=== PATIENT | male | born 1945 | race Caucasian/White ===

== ENCOUNTER 2016-06-26 09:59 | Day surgery (SDC) | payer MEDICARE, OTHER ==
--- NOTE | ~2016-06-26 | EGD ---
EGD REPORT [facility] [address] [address] NAME: ERASMO ALTAMIRANO : [birth year] STATUS : REG [facility]#: [id number] AGE: 71 ADM/REG DATE : 06/26/16 MR#: [id number] REPORT SERV DATE: 06/26/16 DICTATED BY: ERASMO LIZAMA DATE: 06/26/16 REPORT STATUS : Draft [facility]ANS[facility]: [facility] DATE: 06/26/16 Endoscopy Center Patient Name: Erasmo Altamirano Date of : 1945 Attending MD: ERASMO LIZAMA MD Procedure Date No Time: 06/26/2016 Procedure: Upper GI endoscopy Indications: Surveillance for malignancy due to personal history of Carrasco's esophagus Referring MD: Flavio GUTIERREZ MD Medicines: Monitored Anesthesia Care Complications: No immediate complications. Procedure: Pre-Anesthesia Assessment: - ASA Grade Assessment: III - A patient with severe systemic disease. After obtaining informed consent, the endoscope was passed under direct vision. Throughout the procedure, the patient's blood pressure, pulse, and oxygen saturations were monitored continuously. The GIF [id number] [id number] was introduced through the mouth, and advanced to the second part of duodenum. The upper GI endoscopy was accomplished without difficulty. The patient tolerated the procedure well. Findings: The Z-line was irregular and was found at the gastroesophageal junction. Biopsies were taken with a cold forceps for histology. A small hiatus hernia was present. The cardia and gastric fundus were normal on retroflexion. Localized mildly erythematous mucosa without active bleeding and with no stigmata of bleeding was found in the duodenal bulb. Biopsies were taken with a cold forceps for histology. The cardia and gastric fundus were normal on retroflexion. Impression: - Z-line irregular, at the gastroesophageal junction. Biopsied. - Hiatus hernia. - Erythematous duodenopathy. Biopsied. Recommendation: - Await pathology results. - Follow an antireflux regimen. - Repeat the upper endoscopy in 3 years for surveillance. Procedure Code(s): --- Professional --- 73261, Esophagogastroduodenoscopy, flexible, transoral; EGD REPORT [address] [place]. [address] NAME: ERASMO ALTAMIRANO : [birth year] STATUS : [place] [facility] [place]#: [id number] AGE: 71 ADM/REG DATE : 06/26/16 MR#: [id number] REPORT SERV DATE: 06/26/16 DICTATED BY: ERASMO LZIAMA DATE: 06/26/16 REPORT STATUS : Draft TRANSCRIBED BY: [employer] DATE: 06/26/16 with biopsy, single or multiple Diagnosis Code(s): --- Professional --- K22.8, Other specified diseases of esophagus K44.9, Diaphragmatic hernia without obstruction or gangrene K31.89, Other diseases of stomach and duodenum K22.70, Carrasco's esophagus without dysplasia CPT copyright 2013 [employer]. All rights reserved. The codes documented in this report are preliminary and upon pivot maker review may be revised to meet current compliance requirements. ERASMO LIZAMA MD 06/26/2016 12:45 PM This report has been signed electronically. Number of Addenda: 0 Note Initiated On: 06/26/2016 12:35 PM Scope Withdrawal Time 0 hours 0 minutes [address] [place], [place] [address] [address]
--- NOTE | ~2016-06-26 | EGD ---
EGD REPORT [facility] [address] [address] NAME: ERASMO ALTAMIRANO : 41 STATUS : REG [facility]#: [id number] AGE: 71 ADM/REG DATE : 06/26/16 MR#: [id number] REPORT SERV DATE: 06/26/16 DICTATED BY: ERASMO LIZAMA DATE: 06/26/16 REPORT STATUS : Draft [facility]ANSCRIBED [facility]: [facility] DATE: 06/26/16 Endoscopy Center Patient Name: Erasmo Altamirano Date of : 1945 Attending MD: ERASMO LIZAMA MD Procedure Date No Time: 06/26/2016 Procedure: Colonoscopy Indications: High risk colon cancer surveillance: Personal history of colonic polyps Referring MD: Flavio GUTIERREZ MD Medicines: Monitored Anesthesia Care Complications: No immediate complications. Procedure: Pre-Anesthesia Assessment: - ASA Grade Assessment: III - A patient with severe systemic disease. After I obtained informed consent, the scope was passed under direct vision. Throughout the procedure, the patient's blood pressure, pulse, and oxygen saturations were monitored continuously. The PCF [id number] was introduced through the anus and advanced to the cecum, identified by appendiceal orifice and ileocecal valve. The colonoscopy was performed without difficulty. The patient tolerated the procedure well. The quality of the bowel preparation was adequate. Findings: The digital rectal exam was normal. Pertinent negatives include no palpable rectal lesions. A sessile polyp was found in the ascending colon. The polyp was 5 mm in size. The polyp was removed with a cold biopsy forceps. Resection and retrieval were complete. A sessile polyp was found in the rectum. The polyp was 5 mm in size. The polyp was removed with a cold biopsy forceps. Resection and retrieval were complete. Diffuse melanosis was found in the entire colon. A few diverticula were found in the sigmoid colon. Hemorrhoids were found during retroflexion and were mild. Impression: - One 5 mm polyp in the ascending colon. Resected and retrieved. - One 5 mm polyp in the rectum. Resected and retrieved. - Melanosis in the colon. - Diverticulosis in the sigmoid colon. - Hemorrhoids. EGD REPORT [address] [address] NAME: EVELIAERASMO Raman : [birth year] STATUS : REG [facility] PAT#: [id number] AGE: 71 ADM/REG DATE : 06/26/16 MR#: [id number] REPORT SERV DATE: 06/26/16 DICTATED BY: ERASMO LIZAMA DATE: 06/26/16 REPORT STATUS : Draft TRANSCRIBED BY: [employer] DATE: 06/26/16 Recommendation: - Patient has a contact number available for emergencies. The signs and symptoms of potential delayed complications were discussed with the patient. Return to normal activities tomorrow. Written discharge instructions were provided to the patient. - Regular diet. - Continue present medications. - Repeat colonoscopy in 5 years for surveillance. - Return to GI clinic PRN. - Resume ELIQUIS at prior dose today. Refer to managing physician for further adjustment of therapy. Procedure Code(s): --- Professional --- 11677, Colonoscopy, flexible, proximal to splenic flexure; with biopsy, single or multiple Diagnosis Code(s): --- Professional --- K62.1, Rectal polyp D12.2, Benign neoplasm of ascending colon K63.89, Other specified diseases of intestine K64.9, Unspecified hemorrhoids K57.30, Diverticulosis of large intestine without perforation or abscess without bleeding Z86.010, Personal history of colonic polyps CPT copyright 2013 [employer]. All rights reserved. The codes documented in this report are preliminary and upon bilingual account manager review may be revised to meet current compliance requirements. ERASMO LIZAMA MD 06/26/2016 12:59 PM This report has been signed electronically. Number of Addenda: 0 Note Initiated On: 06/26/2016 12:31 PM Scope Withdrawal Time 0 hours 6 minutes 39 seconds [address] [id number]
[~2016-06-26 09:59] MED LIST: ACET500CAP PO; ALEVE220 MG PO; ASA5GR PO; ASAB PO; ASAEC PO; BEN25 PO; BLOOD THINNER PO; CASCARA PO; CASCARA SAGRADA PO; CLARIT10 PO; ELIQUIS 5 MG TAB5 MG PO; LEVAQUIN750 MG PO; LIPITOR40 PO; MOTRIN IB200 MG PO; NAFCILLIN10 GM IV; P5 PO; PREDNISONE PO; REST15 PO; T PO; VICODINTAB PO; VITAMIN B-121000 MC1 SL; VITAMIN B-625 MG PO; ZOFRAN PO; [UNRECOGNIZED DRUG - CODE] IM; [UNRECOGNIZED DRUG - CODE] IV; [UNRECOGNIZED DRUG - OTHER]; [UNRECOGNIZED DRUG - OTHER]; [UNRECOGNIZED DRUG - OTHER] PO
== END 2016-06-26 23:59 | disposition home or self-care (01) ==
LOC: DMU 09:59
PROVIDERS: Internal Medicine Gastroenterology
PROC: 0DB48ZX Excision of Esophagogastric Junction, Via Natural or Artificial Opening Endoscopic, Diagnostic (ICD-10-PCS; 2016-06-26)
PROC: 0DB98ZX Excision of Duodenum, Via Natural or Artificial Opening Endoscopic, Diagnostic (ICD-10-PCS; 2016-06-26)
PROC: 0DBK8ZZ Excision of Ascending Colon, Via Natural or Artificial Opening Endoscopic (ICD-10-PCS; principal; 2016-06-26 11:30)
PROC: 0DBP8ZZ Excision of Rectum, Via Natural or Artificial Opening Endoscopic (ICD-10-PCS; 2016-06-26 11:30)
DX: Z12.11 Encounter for screening for malignant neoplasm of colon (principal); D12.2 Benign neoplasm of ascending colon; K63.5 Polyp of colon; K29.80 Duodenitis without bleeding; K63.89 Other specified diseases of intestine; K57.30 Diverticulosis of large intestine without perforation or abscess without bleeding; K64.9 Unspecified hemorrhoids; K44.9 Diaphragmatic hernia without obstruction or gangrene; Z86.010 Personal history of colon polyps; I10 Essential (primary) hypertension; I48.91 Unspecified atrial fibrillation; G47.33 Obstructive sleep apnea (adult) (pediatric); G40.909 Epilepsy, unspecified, not intractable, without status epilepticus; G57.93 Unspecified mononeuropathy of bilateral lower limbs; M19.90 Unspecified osteoarthritis, unspecified site; N20.0 Calculus of kidney; Z86.73 Personal history of transient ischemic attack (TIA), and cerebral infarction without residual deficits; Z95.2 Presence of prosthetic heart valve; Z85.46 Personal history of malignant neoplasm of prostate; Z79.01 Long term (current) use of anticoagulants; Z79.82 Long term (current) use of aspirin; Z79.899 Other long term (current) drug therapy
CPT/HCPCS: 88305